=== PATIENT | male | born 1975 | race African-American/Black ===

== ENCOUNTER 2020-11-21 07:09 | Emergency (ER) | payer MEDICAID ==
[~2020-11-21] VITALS: Ht 188 cm; Wt 90.9 kg
[2020-11-21 07:11] VITALS: BP 120/75
[2020-11-21] MEDS ORDERED: METH-659 PO (07:17)
[2020-11-21] MEDS ORDERED: AMOX TR/POT CLAV 875 MG/125 MG TABLET PO ONE (07:45)
[2020-11-21] MEDS ORDERED: IBUPROFEN 600 MG TABLET PO ONE (07:45)
== END 2020-11-21 08:49 | disposition home or self-care (01) ==
LOC: EMS 07:09
DX: S62.634A Displaced fracture of distal phalanx of right ring finger, initial encounter for closed fracture (principal); S61.212A Laceration without foreign body of right middle finger without damage to nail, initial encounter; F17.210 Nicotine dependence, cigarettes, uncomplicated; W50.0XXA Accidental hit or strike by another person, initial encounter; Y93.89 Activity, other specified; Y92.89 Other specified places as the place of occurrence of the external cause; Y99.8 Other external cause status
CPT/HCPCS: 29280; 99283